=== PATIENT | male | born 1970 ===

== ENCOUNTER 2021-04-21 08:56 | Day surgery (SDC) | payer MEDICAID ==
[~2021-04-21] VITALS: Ht 185.4 cm; Wt 89.4 kg
[2021-04-21] MEDS ORDERED: TOPROL XL 50MG50 MG PO (10:12)
[2021-04-21] MEDS ORDERED: LIPITOR 40MG TA40 MG PO (10:13)
[2021-04-21] MEDS ORDERED: APRESOLINE 25MG25 MG PO (10:14)
[2021-04-21] MEDS ORDERED: PRINIVIL20 MG PO (10:14)
[2021-04-21 10:15] VITALS: BP 162/109; PULSE 77; TEMP 98.6
[2021-04-21 10:15] LABS: INR 1.5 (0.8-3.0); POTASSIUM 3.9 mmol/L (3.5-4.5); PROTHROMBIN TIME 16.4 SECONDS (9.7-12.8)
[2021-04-21] MEDS ORDERED: ELIQUIS 5MG PO (10:15)
[2021-04-21 10:43] LABS: THYROID STIMULATING HORMONE 1.095 uIU/mL (0.350-4.940)
[2021-04-21 12:10] VITALS: BP 141/98; PULSE 89
--- NOTE | 2021-04-21 12:10 | NUR ---
PT care assumed from Lona RN. Pt is awake and alert, NSR on monitor, telemetry initiated. Friend Dany is at bs. I discussed discharge plan and instructions at this time, and plan to again prior to discharge. pt given water, no trouble swallowing.
[2021-04-21 12:15] VITALS: BP 146/98; PULSE 86
[2021-04-21 12:30] VITALS: BP 146/97; PULSE 85
[2021-04-21 12:45] VITALS: BP 146/93; PULSE 90
[2021-04-21 13:00] VITALS: BP 148/98; PULSE 93
--- NOTE | 2021-04-21 13:15 | NUR ---
Pt ready for discharge. 2nd EKG was obtained. Pt has remained in SR with 1st deg AV block. Pt remains awake and alert, verbalizes understanding of discharge and follow up instructions. IV dc'd with cath intact, dressing applied. amb around nurses station with steady gait. to exit via wheelchair.
== END 2021-04-21 13:15 | disposition home or self-care (01) ==
LOC: COL.CAR 08:56
PROVIDERS: Internal Medicine Cardiovascular Disease
DX: I48.92 Unspecified atrial flutter (principal); I48.91 Unspecified atrial fibrillation; I10 Essential (primary) hypertension; E78.5 Hyperlipidemia, unspecified; G45.9 Transient cerebral ischemic attack, unspecified; F32.9 Major depressive disorder, single episode, unspecified; F41.9 Anxiety disorder, unspecified; F43.10 Post-traumatic stress disorder, unspecified; Z79.01 Long term (current) use of anticoagulants; Z87.891 Personal history of nicotine dependence; Z79.899 Other long term (current) drug therapy; Z80.9 Family history of malignant neoplasm, unspecified
CPT/HCPCS: J0360; J2704; J7120

== ENCOUNTER → 2021-11-09 | Outpatient (CLI) | payer MEDICAID ==
[~2021-11-09] VITALS: Ht 185.5 cm; Wt 98.3 kg
[~2021-11-09] MED LIST: ALDACTONE 25MG25 M1 PO; APRESOLINE 25MG25 MG PO; ELIQUIS 5MG PO; LIPITOR 40MG TA40 MG PO; PACERONE200 MG PO; PRINIVIL20 MG PO; TOPROL XL 50MG50 MG PO
[2021-11-09 11:23] VITALS: BP 168/100; PULSE 56; TEMP 98.4
[2021-11-09 12:38] VITALS: BP 192/97; PULSE 59
[2021-11-09 12:49] VITALS: BP 153/90; PULSE 72
[2021-11-09 12:51] VITALS: BP 172/100; PULSE 76
[2021-11-09 12:52] VITALS: BP 183/94; PULSE 77
[2021-11-09 12:54] VITALS: BP 172/98; PULSE 75
== END ==
LOC: COL.CARD 10:45
DX: R07.9 Chest pain, unspecified (principal)
CPT/HCPCS: A9500; J2785